=== PATIENT | male | born 2000 | race American Indian/Alaskan Native ===

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

== ENCOUNTER 2019-10-22 20:32 | Emergency (ER) | payer SELFPAY ==
--- NOTE | 2019-10-22 20:47 | Emergency Department Report ---
Blank Doc - Documentation Documentation: 19-year-old male that presents with abdominal pain. This initial assessment/diagnostic orders/clinical plan/treatment(s) is/are subject to change based on patient's health status, clinical progression and re- assessment by fellow clinical providers in the ED. Further treatment and workup at subsequent clinical providers discretion. Patient/guardians urged not to elope from the ED as their condition may be serious if not clinically assessed and managed. Initial orders include: 1- Patient sent to [facility] for further evaluation and treatment 2- labs 3- UA
[2019-10-22 20:49] VITALS: BP 116/71
[2019-10-22 21:20] LABS: Bilirubin,Urine NEG (Negative); Blood,Urine NEG (Negative); Color,Urine Yellow (Yellow); Mucus,Urine FEW /HPF; Protein,Urine <15 mg/dL mg/dL (Negative); Urobilinogen,Urine < 2.0 mg/dL (<2.0)
[2019-10-22 21:26] LABS: Basophils % (Auto) 0.6 % (0.0-1.8); Eosinophils % (Auto) 0.8 % (0.0-4.3); Hematocrit 46.1 % (35.5-45.6); Hemoglobin 14.9 gm/dl (11.8-15.2); Lymphocytes # (Auto) 2.5 K/mm3 (1.2-5.4); Lymphocytes % (Auto) 50.4 % (13.4-35.0); Mean Corpuscular HGB Conc 32 % (32-34); Mean Corpuscular Volume 88 fl (84-94); Monocytes # (Auto) 0.3 K/mm3 (0.0-0.8); Monocytes % (Auto) 5.8 % (0.0-7.3); Platelet Count 325 K/mm3 (140-440); Red Blood Count 5.25 M/mm3 (3.65-5.03); Red Cell Distribution Width 14.3 % (13.2-15.2)
[2019-10-22 21:34] LABS: Alanine Aminotransferase 10 units/L (7-56); Albumin 4.8 g/dL (3.9-5); BUN/Creatinine Ratio 18; Blood Urea Nitrogen 16 mg/dL (9-20); Calcium 9.8 mg/dL (8.4-10.2); Hemolysis Index 7
--- NOTE | 2019-10-23 01:52 | Emergency Department Report ---
ED Abdominal Pain HPI - General Chief Complaint: Abdominal Pain Stated Complaint: ABD PAIN Time Seen by Provider: 10/22/19 20:47 Source: patient Mode of arrival: Ambulatory Limitations: No Limitations - History of Present Illness Initial Comments: 19-year-old F [place] male presents emerge department complaining of having episodes of crampy abdominal pain to the left lower quadrant associated with increased flatulence and bloating. Ports no diarrhea. Ports no fever, chills, sweats no chest pain or palpitations no hematuria or dysuria. MD Complaint: abdominal pain Migration to: no migration Severity: mild Quality: dull Consistency: constant Improves With: nothing Worsens With: nothing Associated Symptoms: denies: vomiting, diarrhea, chills, hematemesis, hematochezia, melena, hematuria, anorexia - Related Data Previous Rx's Medication Instructions Recorded Last Taken Type Lactulose [Cephulac] 30 gm PO Q6HR #540 ml 10/23/19 Unknown Rx bisacodyL [Dulcolax suppos] 10 mg KS QDAY #7 supp.rect 10/23/19 Unknown Rx bisacodyL [Dulcolax] 10 mg PO DAILY #7 tab 10/23/19 Unknown Rx Allergies Allergy/AdvReac Type Severity Reaction Status Date / Time lactose Allergy Unknown Verified 10/22/19 20:36 ED Review of Systems ROS: Stated complaint: ABD PAIN Other details as noted in HPI Comment: All other systems reviewed and negative ED Past Medical Hx - Past Medical History Previous Medical History?: No - Surgical History Past Surgical History?: No - Social History Smoking Status: Never Smoker Substance Use Type: Marijuana - Medications Home Medications: Home Medications Medication Instructions Recorded Confirmed Last Taken Type Lactulose [Cephulac] 30 gm PO Q6HR #540 ml 10/23/19 Unknown Rx bisacodyL [Dulcolax suppos] 10 mg KS QDAY #7 supp.rect 10/23/19 Unknown Rx bisacodyL [Dulcolax] 10 mg PO DAILY #7 tab 10/23/19 Unknown Rx ED Physical Exam - General Limitations: No Limitations General appearance: alert, in no apparent distress - Head Head exam: Present: atraumatic, normocephalic - Eye Eye exam: Present: normal appearance, EOMI Pupils: Present: normal accommodation - ENT ENT exam: Present: normal exam, normal orophraynx, mucous membranes moist, TM's normal bilaterally - Neck Neck exam: Present: normal inspection, full ROM - Respiratory Respiratory exam: Present: normal lung sounds bilaterally. Absent: respiratory distress, wheezes, rhonchi, chest wall tenderness, accessory muscle use - Cardiovascular Cardiovascular Exam: Present: regular rate, normal rhythm. Absent: systolic murmur, diastolic murmur, rubs, gallop - GI/Abdominal GI/Abdominal exam: Present: soft, normal bowel sounds, other (Increased tympany). Absent: distended, tenderness, guarding, organomegaly, mass, bruit - Rectal Rectal exam: Present: deferred. Absent: heme (+) stool - Extremities Exam Extremities exam: Present: normal inspection, full ROM, normal capillary refill - Back Exam Back exam: Present: normal inspection. Absent: CVA tenderness (R), CVA tende rness (L), paraspinal tenderness, vertebral tenderness - Neurological Exam Neurological exam: Present: alert, oriented X3, CN II-XII intact, normal gait. Absent: motor sensory deficit - Psychiatric Psychiatric exam: Present: normal affect, normal mood. Absent: anxious, flat affect, manic, suicidal ideation - Skin Skin exam: Present: warm, dry, intact, normal color. Absent: rash ED Course Vital Signs 10/22/19 10/22/19 20:46 20:47 Temperature 98.2 F 98.2 F Pulse Rate 72 71 Respiratory 18 18 Rate Blood Pressure 116/71 116/71 O2 Sat by Pulse 98 99 Oximetry ED Medical Decision Making - Lab Data Result diagrams: 10/22/19 21:00 10/22/19 21:00 - Medical Decision Making This patient presents with abdominal pain of unclear etiology. Their evaluation has not identified a emergent etiology for the abdominal pain. Specifically, given the very benign exam, normal laboratory studies, and lack of significant risk factors, I have a very low suspicion for appendicitis, ischemic bowel, bowel perforation, or any other life threatening disease. I have discussed with the patient the level of uncertainty with undifferentiated abdominal pain and clearly explained the need to follow-up as noted on the discharge instructions, or return to the Emergency Department immediately if the pain worsens, develops fever, persistent and uncontrollable vomiting, or for any new symptoms or concerns. I discussed with the patient that this presentation today for abdominal pain could represent a significant risk for an acute abdominal process. Although the tests in the ED were essentially normal, there is still a possibility of a process such as appendicitis, diverticulitis, cholecystitis, ulcer, early bowel obstruction, mesenteric ischemia, kidney stone, or even kidney infection which could subsequently cause disability or . The patient understands that they must return within 24 hours for a recheck or see their physician within 24 hours for re-exam due to the possibility of significant surgical or medical process. Critical care attestation.: If time is entered above; I have spent that time in minutes in the direct care of this critically ill patient, excluding procedure time. ED Disposition Clinical Impression: Abdominal pain Disposition: DC-01 TO HOME OR SELFCARE Is pt being admited?: No Does the pt Need Aspirin: No Condition: Stable Instructions: Abdominal Pain (ED), Gas and Bloating (ED) Prescriptions: Lactulose [Cephulac] 30 gm PO Q6HR #540 ml bisacodyL [Dulcolax suppos] 10 mg KS QDAY #7 supp.rect bisacodyL [Dulcolax] 10 mg PO DAILY #7 tab Referrals: PRIMARY CARE, [Primary Care Provider] - 3-5 Days
== END 2019-10-23 02:40 | disposition home or self-care (01) ==
LOC: ED 20:32
DX: R10.32 Left lower quadrant pain (principal); F12.10 Cannabis abuse, uncomplicated; Z91.011 Allergy to milk products
CPT/HCPCS: 36415; 80053; 81001; 85025; 99283